=== PATIENT | female | born 1940 | race Caucasian/White ===

== ENCOUNTER 2018-09-10 12:28 | Inpatient (IN) ==
[2018-09-10] MEDS ORDERED: LORazepam 2 MG/1 ML VIAL IV ONE (13:42)
[2018-09-10] MEDS ORDERED: ONDANSETRON 4 MG/2 ML VIAL IV PRN (13:49)
[2018-09-10] MEDS ORDERED: LABETALOL 20 MG/4 ML SYRINGE IV PRN (13:52)
[2018-09-10] MEDS ORDERED: GLUCAGON 1 MG VIAL IM PRN (14:07)
[2018-09-10] MEDS ORDERED: DEXTROSE 50% 25 GM/50 ML VIAL IV PRN (14:07)
[2018-09-10 14:27] LABS: Basophils # 0.1 10*3/uL (0.0-0.2); Basophils % 0.4 % (0.0-0.8); Eosinophils # 0.1 10*3/uL (0.0-0.87); Eosinophils % 0.6 % (0.00-10.9); Hematocrit 43.5 VOL% (35.7-47.0); Hemoglobin 15.5 GM/DL (12.0-16.0); Immature Granulocytes % 0.8 %; Immature Granulocytes Absolute 0.13 #; Lymphocytes # 2.3 10*3/uL (1.4-4.0); Lymphocytes % 14.6 % (21.3-54.2); Mean Corpuscular HGB Conc 35.6 GM/DL (32-36); Mean Corpuscular Volume 82.4 FL (87-102); Mean Platelet Volume 8.3 FL (9.6-12.0); Neutrophils % 75.6 % (38.7-73.9); Platelet Count 249 T/CUMM (130-400); Red Blood Count 5.28 MC/CUMM (3.8-5.5); Red Cell Distribution Width 12.7 % (9.3-17.3); White Blood Count 15.9 T/CUMM (4-12)
[2018-09-10] MEDS ORDERED: SODIUM CHLORIDE 0.45% 1,000 ML IV SCH (14:30)
[2018-09-10] MEDS ORDERED: CLOPIDOGREL 75 MG TABLET PO ONE (14:48)
[2018-09-10 14:59] LABS: Albumin 3.8 G/DL (3.4-5.0); Bilirubin,Total 0.7 MG/DL (0.2-1.0); Calcium 9.4 MG/DL (8.5-10.1); Osmolality,Calculated 256.2 MOS/KG (273-304); Risk Ratio 4.09; Thyroid Stimulating Hormone 2.9 uIU/ml (0.358-3.74); Total Protein 7.1 G/DL (6.4-8.3); VLDL CHOLESTEROL 26.2 MG/DL
[2018-09-10] MEDS: ASPIRIN EC 81 MG TABLET PO SCH (15:41)
[2018-09-10] MEDS: INSULIN REGULAR 100 UNIT/ML SUBCUT SCH (17:49)
[2018-09-10] MEDS ORDERED: POTASSIUM CHLORIDE 20 MEQ TABLET PO ONE (20:00)
[2018-09-10] MEDS ORDERED: LISINOPRIL 20 MG TABLET PO SCH (21:00)
[2018-09-10] MEDS: amLODIPine 10 MG TABLET PO SCH (21:04)
[2018-09-10] MEDS: LISINOPRIL 20 MG TABLET PO SCH (21:04)
[2018-09-10] MEDS: ATORVASTATIN 80 MG TABLET PO SCH (21:04)
[2018-09-10] MEDS: LABETALOL 100 MG TABLET PO SCH (21:05)
[2018-09-10] MEDS: SODIUM CHLOR 0.9% KCL 20 MEQ 20 MEQ/1,000 ML BAG IV SCH (21:06)
[2018-09-11] MEDS: INSULIN REGULAR 100 UNIT/ML SUBCUT SCH ×4 (00:44→18:21)
[2018-09-11] MEDS: ACETAMINOPHEN 325 MG TABLET PO PRN ×4 (03:58→22:00)
[2018-09-11 05:20] LABS: Calcium 8.5 MG/DL (8.5-10.1); Osmolality,Calculated 264.5 MOS/KG (273-304)
[2018-09-11] MEDS: SODIUM CHLOR 0.9% KCL 20 MEQ 20 MEQ/1,000 ML BAG IV SCH (05:21)
[2018-09-11 05:34] LABS: Barbiturates Screen,Urine Negative (Negative); Benzodiazepines Screen,Urine Negative (Negative); Cannabinoid Screen,Urine Negative (Negative); Opiate Screen,Urine Negative (Negative); Phencyclidine Screen,Urine Negative (Negative)
[2018-09-11] MEDS ORDERED: MAGNESIUM SULF RIDER 2 GM in PREMIX 1 EACH IV PRN (07:38)
[2018-09-11] MEDS ORDERED: MAGNESIUM SULF RIDER 4 GM in PREMIX 1 EACH IV PRN (07:38)
[2018-09-11] MEDS ORDERED: LISINOPRIL/HCTZ 20-12.5 MG TABLET PO SCH (09:00)
[2018-09-11] MEDS: OMEGA 3 ACID ETHYL ESTERS 1 GM CAPSULE PO SCH (09:23)
[2018-09-11] MEDS: ASPIRIN EC 81 MG TABLET PO SCH (09:24)
[2018-09-11] MEDS: LISINOPRIL 20 MG TABLET PO SCH ×2 (09:24→22:00)
[2018-09-11] MEDS: LABETALOL 100 MG TABLET PO SCH ×2 (09:25→22:01)
[2018-09-11] MEDS: CLOPIDOGREL 75 MG TABLET PO SCH (09:25)
[2018-09-11] MEDS: ATORVASTATIN 80 MG TABLET PO SCH (22:00)
[2018-09-11] MEDS: amLODIPine 10 MG TABLET PO SCH (22:01)
[2018-09-12] MEDS: INSULIN REGULAR 100 UNIT/ML SUBCUT SCH ×3 (00:20→12:08)
[2018-09-12] MEDS: ASPIRIN EC 81 MG TABLET PO SCH (08:37)
[2018-09-12] MEDS: CLOPIDOGREL 75 MG TABLET PO SCH (08:37)
[2018-09-12] MEDS: LABETALOL 100 MG TABLET PO SCH (08:37)
[2018-09-12] MEDS: OMEGA 3 ACID ETHYL ESTERS 1 GM CAPSULE PO SCH (08:37)
[2018-09-12] MEDS: ACETAMINOPHEN 325 MG TABLET PO PRN (09:01)
[2018-09-12] MEDS: LISINOPRIL 20 MG TABLET PO SCH (09:01)
[2018-09-12] MEDS ORDERED: MAGNESIUM HYDROXIDE SUSP 30 ML UDCUP PO ONE (09:45)
[2018-09-12 12:41] VITALS: BP 144/68
== END 2018-09-12 14:05 | DRG 65 ==
LOC: N.4E 12:41 → SUATTDRO 12:41
PROVIDERS: ADMIT Family Medicine; ATTEND Family Medicine

== ENCOUNTER 2020-04-29 09:45 | Inpatient (IN) ==
[2020-04-29] MEDS ORDERED: KETOROLAC 30 MG/1 ML VIAL IV STA (10:49)
[2020-04-29 10:50] LABS: Basophils # 0.1 10*3/uL (0.0-0.2); Basophils % 0.7 % (0.0-0.8); Eosinophils # 0.2 10*3/uL (0.0-0.87); Hematocrit 30.7 VOL% (35.7-47.0); Immature Granulocytes % 1.2 %; Immature Granulocytes Absolute 0.15 #; Lymphocytes # 1.2 10*3/uL (1.4-4.0); Lymphocytes % 9.6 % (21.3-54.2); Mean Corpuscular HGB Conc 32.6 GM/DL (32-36); Mean Corpuscular Volume 71.9 FL (87-102); Mean Platelet Volume 8.3 FL (9.6-12.0); Monocytes % 9.9 % (1.7-12.7); Neutrophils % 76.6 % (38.7-73.9); Platelet Count 332 T/CUMM (130-400); Red Blood Count 4.27 MC/CUMM (3.8-5.5); White Blood Count 12.2 T/CUMM (4-12)
[2020-04-29 11:07] LABS: Albumin 2.7 G/DL (3.4-5.0); Bilirubin,Total 0.8 MG/DL (0.2-1.0); Calcium 8.6 MG/DL (8.5-10.1); Osmolality,Calculated 247.1 MOS/KG (273-304); Potassium 3.7 MMOL/L (3.5-5.1); Total Protein 6.3 G/DL (5.0-7.5)
[2020-04-29 11:43] LABS: Amorphous Crystals,Urine Moderate /HPF (Few); Bacteria,Urine Occasional /HPF (Few); Bilirubin,Urine Negative (Negative); Blood, Urine Negative (Negative); Glucose,Urine (UA) Negative (Negative); Ketones,Urine Negative (Negative); Mucus,Urine Occasional /LPF (Occasional); Nitrite,Urine Negative (Negative); Protein,Urine Negative; Urine Appearance Slightly Hazy (Clear); Urine Color Yellow (Yellow); Urine Urobilinogen < 2.0 EU/DL (0.2-1.0)
[2020-04-29] MEDS ORDERED: SODIUM CHLORIDE 0.9% 1,000 ML IV STA (11:52)
[2020-04-29] MEDS ORDERED: DEXTROSE 50% 25 GM/50 ML VIAL IV PRN (13:38)
[2020-04-29] MEDS ORDERED: hydrALAZINE 20 MG/1 ML VIAL IV PRN (13:38)
[2020-04-29] MEDS ORDERED: GLUCAGON 1 MG VIAL IM PRN (13:38)
[2020-04-29] MEDS ORDERED: CALCIUM CARBONATE CHEW 500 MG TABLET PO PRN (13:38)
[2020-04-29] MEDS ORDERED: SODIUM PHOSPHATE ENEMA 133 ML BOTTLE RECTAL ONE (13:41)
[2020-04-29] MEDS ORDERED: BISACODYL 10 MG SUPP RECTAL PRN (13:42)
[2020-04-29] MEDS: SODIUM CHLORIDE 0.9% 1,000 ML IV SCH ×2 (14:41→23:11)
[2020-04-29] MEDS ORDERED: MAGNESIUM CITRATE 300 ML BOTTLE PO ONE ×2 (15:55)
[2020-04-29] MEDS ORDERED: MAGNESIUM CITRATE 300 ML BOTTLE ONE (15:56)
[2020-04-29 16:44] LABS: Calcium 8.1 MG/DL (8.5-10.1); Osmolality,Calculated 255.4 MOS/KG (273-304); Potassium 3.4 MMOL/L (3.5-5.1)
[2020-04-29] MEDS: INSULIN REGULAR 100 UNIT/ML SUBCUT SCH (19:34)
[2020-04-29] MEDS ORDERED: POTASSIUM CHLORIDE 20 MEQ/15 ML UDCUP PO ONE (20:08)
[2020-04-29] MEDS: DOCUSATE SODIUM 100 MG CAPSULE PO SCH (20:59)
[2020-04-29] MEDS: DOCUSATE SODIUM 100 MG/10 ML UDCUP PO SCH (20:59)
[2020-04-29] MEDS: LACTULOSE 20 GM/30 ML UDCUP PO SCH (20:59)
[2020-04-29] MEDS: ATORVASTATIN 80 MG TABLET PO SCH (23:10)
[2020-04-29] MEDS: LABETALOL 100 MG TABLET PO SCH (23:10)
[2020-04-29] MEDS: lisinopriL 20 MG TABLET PO SCH (23:10)
[2020-04-29] MEDS: amLODIPine 10 MG TABLET PO SCH (23:10)
[2020-04-30 06:07] LABS: Basophils # 0.1 10*3/uL (0.0-0.2); Basophils % 0.3 % (0.0-0.8); Eosinophils # 0.1 10*3/uL (0.0-0.87); Eosinophils % 0.3 % (0.00-10.9); Hematocrit 29.2 VOL% (35.7-47.0); Hemoglobin 9.5 GM/DL (12.0-16.0); Immature Granulocytes % 0.9 %; Immature Granulocytes Absolute 0.15 #; Lymphocytes # 1.4 10*3/uL (1.4-4.0); Lymphocytes % 8.2 % (21.3-54.2); Mean Corpuscular HGB Conc 32.5 GM/DL (32-36); Mean Corpuscular Volume 73.4 FL (87-102); Mean Platelet Volume 8.7 FL (9.6-12.0); Monocytes % 6.2 % (1.7-12.7); Neutrophils % 84.1 % (38.7-73.9); Platelet Count 342 T/CUMM (130-400); Red Blood Count 3.98 MC/CUMM (3.8-5.5); White Blood Count 17.5 T/CUMM (4-12)
[2020-04-30 06:37] LABS: Calcium 8.2 MG/DL (8.5-10.1); Osmolality,Calculated 256.2 MOS/KG (273-304); Potassium 3.7 MMOL/L (3.5-5.1); Risk Ratio 1.89; VLDL CHOLESTEROL 11.2 MG/DL
[2020-04-30] MEDS: INSULIN REGULAR 100 UNIT/ML SUBCUT SCH ×3 (10:18→17:06)
[2020-04-30] MEDS: LACTULOSE 20 GM/30 ML UDCUP PO SCH ×2 (10:19→20:50)
[2020-04-30] MEDS: DOCUSATE SODIUM 100 MG/10 ML UDCUP PO SCH (10:19)
[2020-04-30] MEDS: DOCUSATE SODIUM 100 MG CAPSULE PO SCH ×2 (10:19→20:48)
[2020-04-30] MEDS: ASPIRIN EC 81 MG TABLET PO SCH (10:22)
[2020-04-30] MEDS: OMEGA 3 ACID ETHYL ESTERS 1 GM CAPSULE PO SCH (10:24)
[2020-04-30] MEDS: lisinopriL 20 MG TABLET PO SCH ×2 (10:25→20:49)
[2020-04-30] MEDS: PANTOPRAZOLE 40 MG TABLET PO SCH (10:25)
[2020-04-30] MEDS: LABETALOL 100 MG TABLET PO SCH ×2 (10:25→20:49)
[2020-04-30] MEDS: amLODIPine 10 MG TABLET PO SCH (20:48)
[2020-04-30] MEDS: ATORVASTATIN 80 MG TABLET PO SCH (20:51)
[2020-04-30] MEDS: POLYETHYLENE GLYCOL POWDER 17 GM PACK PO SCH (21:15)
[2020-05-01 05:33] LABS: Basophils # 0.1 10*3/uL (0.0-0.2); Basophils % 0.5 % (0.0-0.8); Eosinophils # 0.3 10*3/uL (0.0-0.87); Eosinophils % 2.3 % (0.00-10.9); Hematocrit 27.2 VOL% (35.7-47.0); Immature Granulocytes Absolute 0.14 #; Lymphocytes # 2.2 10*3/uL (1.4-4.0); Lymphocytes % 15.8 % (21.3-54.2); Mean Corpuscular HGB Conc 33.1 GM/DL (32-36); Mean Corpuscular Volume 72.3 FL (87-102); Mean Platelet Volume 8.4 FL (9.6-12.0); Monocytes % 10.7 % (1.7-12.7); Neutrophils % 69.7 % (38.7-73.9); Platelet Count 300 T/CUMM (130-400); Red Blood Count 3.76 MC/CUMM (3.8-5.5); Red Cell Distribution Width 16.2 % (9.3-17.3); White Blood Count 14.1 T/CUMM (4-12)
[2020-05-01 05:49] LABS: Calcium 8.1 MG/DL (8.5-10.1); Osmolality,Calculated 256.2 MOS/KG (273-304); Potassium 3.3 MMOL/L (3.5-5.1)
[2020-05-01] MEDS: DOCUSATE SODIUM 100 MG CAPSULE PO SCH ×2 (09:00→21:50)
[2020-05-01] MEDS: POLYETHYLENE GLYCOL POWDER 17 GM PACK PO SCH (09:00)
[2020-05-01] MEDS: lisinopriL 20 MG TABLET PO SCH ×2 (09:00→21:50)
[2020-05-01] MEDS: LABETALOL 100 MG TABLET PO SCH ×2 (09:00→21:50)
[2020-05-01] MEDS: ASPIRIN EC 81 MG TABLET PO SCH (09:01)
[2020-05-01] MEDS: PANTOPRAZOLE 40 MG TABLET PO SCH (09:01)
[2020-05-01] MEDS: OMEGA 3 ACID ETHYL ESTERS 1 GM CAPSULE PO SCH (09:01)
[2020-05-01] MEDS: LACTULOSE 20 GM/30 ML UDCUP PO SCH ×2 (09:01→21:50)
[2020-05-01] MEDS: INSULIN REGULAR 100 UNIT/ML SUBCUT SCH ×3 (09:43→17:15)
[2020-05-01] MEDS: POTASSIUM CHLORIDE INJ 10 MEQ in SODIUM CHLORIDE 0.9% 1,000 ML IV SCH (10:54)
[2020-05-01] MEDS: CALCIUM (CARBONATE)/VITAMIN D 500 MG-200 UNIT TABLET PO SCH (10:54)
[2020-05-01] MEDS: POTASSIUM CHLORIDE 20 MEQ TABLET PO PRN ×3 (14:33→19:13)
[2020-05-01] MEDS: amLODIPine 10 MG TABLET PO SCH (21:49)
[2020-05-01] MEDS: TAMSULOSIN 0.4 MG CAPSULE PO SCH (21:50)
[2020-05-01] MEDS: ATORVASTATIN 80 MG TABLET PO SCH (21:50)
[2020-05-02 01:30] LABS: INR 1.2; PT Patient Result 12.7 SECS (9.8-11.9)
[2020-05-02 01:34] LABS: Basophils # 0.1 10*3/uL (0.0-0.2); Basophils % 0.6 % (0.0-0.8); Eosinophils # 0.4 10*3/uL (0.0-0.87); Eosinophils % 2.9 % (0.00-10.9); Hematocrit 27.6 VOL% (35.7-47.0); Hemoglobin 9.2 GM/DL (12.0-16.0); Immature Granulocytes % 1.8 %; Immature Granulocytes Absolute 0.27 #; Lymphocytes # 2.3 10*3/uL (1.4-4.0); Lymphocytes % 15.8 % (21.3-54.2); Mean Corpuscular HGB Conc 33.3 GM/DL (32-36); Mean Corpuscular Volume 71.9 FL (87-102); Mean Platelet Volume 8.6 FL (9.6-12.0); Monocytes % 10.3 % (1.7-12.7); Neutrophils % 68.6 % (38.7-73.9); Platelet Count 302 T/CUMM (130-400); Red Blood Count 3.84 MC/CUMM (3.8-5.5); Red Cell Distribution Width 15.9 % (9.3-17.3); White Blood Count 14.7 T/CUMM (4-12)
[2020-05-02 06:00] LABS: Calcium 8.3 MG/DL (8.5-10.1); Osmolality,Calculated 257.1 MOS/KG (273-304)
[2020-05-02] MEDS: LACTULOSE 20 GM/30 ML UDCUP PO SCH ×2 (09:05→21:04)
[2020-05-02] MEDS: POLYETHYLENE GLYCOL POWDER 17 GM PACK PO SCH ×2 (09:05→21:04)
[2020-05-02] MEDS: LABETALOL 100 MG TABLET PO SCH ×2 (09:06→21:04)
[2020-05-02] MEDS: DOCUSATE SODIUM 100 MG CAPSULE PO SCH ×2 (09:06→21:04)
[2020-05-02] MEDS: ASPIRIN EC 81 MG TABLET PO SCH (09:06)
[2020-05-02] MEDS: CALCIUM (CARBONATE)/VITAMIN D 500 MG-200 UNIT TABLET PO SCH (09:06)
[2020-05-02] MEDS: PANTOPRAZOLE 40 MG TABLET PO SCH (09:07)
[2020-05-02] MEDS: INSULIN REGULAR 100 UNIT/ML SUBCUT SCH ×3 (09:11→15:51)
[2020-05-02] MEDS: lisinopriL 20 MG TABLET PO SCH ×2 (10:11→21:04)
[2020-05-02] MEDS: OMEGA 3 ACID ETHYL ESTERS 1 GM CAPSULE PO SCH (10:13)
[2020-05-02 12:45] LABS: Bacteria,Urine Many /HPF (Few); Bilirubin,Urine Negative (Negative); Blood, Urine Small mg/dL (Negative); Glucose,Urine (UA) Negative (Negative); Ketones,Urine Negative (Negative); Mucus,Urine Moderate /LPF (Occasional); Nitrite,Urine Negative (Negative); Protein,Urine 30 MG/DL; RBC,Urine 37 /HPF (0-4); Urine Appearance CLOUDY (Clear); Urine Color Yellow (Yellow); Urine Specific Gravity 1.009 (1.001-1.035); Urine Urobilinogen < 2.0 EU/DL (0.2-1.0); WBC,Urine 878 /HPF (0-6)
[2020-05-02] MEDS: cefTRIAXone 1,000 MG in SYRINGE 1 EACH IV SCH (17:22)
[2020-05-02] MEDS: amLODIPine 10 MG TABLET PO SCH (21:04)
[2020-05-02] MEDS: ATORVASTATIN 80 MG TABLET PO SCH (21:04)
[2020-05-02] MEDS: TAMSULOSIN 0.4 MG CAPSULE PO SCH (21:04)
[2020-05-03 05:39] LABS: Basophils # 0.1 10*3/uL (0.0-0.2); Basophils % 0.4 % (0.0-0.8); Eosinophils # 0.6 10*3/uL (0.0-0.87); Eosinophils % 4.2 % (0.00-10.9); Hematocrit 27.4 VOL% (35.7-47.0); Immature Granulocytes % 2.2 %; Immature Granulocytes Absolute 0.29 #; Lymphocytes % 15.1 % (21.3-54.2); Mean Corpuscular HGB Conc 32.8 GM/DL (32-36); Mean Corpuscular Volume 71.5 FL (87-102); Mean Platelet Volume 8.8 FL (9.6-12.0); Monocytes % 11.6 % (1.7-12.7); Neutrophils % 66.5 % (38.7-73.9); Platelet Count 314 T/CUMM (130-400); Red Blood Count 3.83 MC/CUMM (3.8-5.5); Red Cell Distribution Width 16.2 % (9.3-17.3); White Blood Count 13.2 T/CUMM (4-12)
[2020-05-03 05:55] LABS: Osmolality,Calculated 255.2 MOS/KG (273-304); Potassium 3.5 MMOL/L (3.5-5.1)
[2020-05-03] MEDS: SODIUM CHLORIDE 0.9% 1,000 ML IV SCH ×3 (07:34→16:32)
[2020-05-03] MEDS: POTASSIUM CHLORIDE INJ 10 MEQ in SODIUM CHLORIDE 0.9% 1,000 ML IV SCH ×2 (07:35→22:21)
[2020-05-03] MEDS: INSULIN REGULAR 100 UNIT/ML SUBCUT SCH ×3 (07:36→16:33)
[2020-05-03] MEDS: LACTULOSE 20 GM/30 ML UDCUP PO SCH ×2 (08:23→22:19)
[2020-05-03] MEDS: POLYETHYLENE GLYCOL POWDER 17 GM PACK PO SCH ×2 (08:24→22:19)
[2020-05-03] MEDS: LABETALOL 100 MG TABLET PO SCH ×2 (08:24→21:49)
[2020-05-03] MEDS: PANTOPRAZOLE 40 MG TABLET PO SCH (08:24)
[2020-05-03] MEDS: lisinopriL 20 MG TABLET PO SCH ×2 (08:24→21:48)
[2020-05-03] MEDS: OMEGA 3 ACID ETHYL ESTERS 1 GM CAPSULE PO SCH (08:24)
[2020-05-03] MEDS: DOCUSATE SODIUM 100 MG CAPSULE PO SCH ×2 (08:24→21:48)
[2020-05-03] MEDS: CALCIUM (CARBONATE)/VITAMIN D 500 MG-200 UNIT TABLET PO SCH (08:24)
[2020-05-03] MEDS ORDERED: fentaNYL 100 MCG/2 ML VIAL ONE (16:15)
[2020-05-03] MEDS: DESITIN 4OZ/NYSTATIN 15 GRAM MIXTURE PASTE TOP SCH ×2 (16:32→22:20)
[2020-05-03] MEDS: cefTRIAXone 1,000 MG in SYRINGE 1 EACH IV SCH (16:33)
[2020-05-03] MEDS ORDERED: propofoL 200 MG/20 ML VIAL IV ONE (16:38)
[2020-05-03] MEDS ORDERED: LIDOCAINE 2% 5 ML VIAL ONE (16:38)
[2020-05-03] MEDS ORDERED: SODIUM CHLORIDE 0.9% 100 ML IV ONE (16:38)
[2020-05-03] MEDS ORDERED: LIDOCAINE 1% 20 ML VIAL ONE (17:03)
[2020-05-03] MEDS ORDERED: LACTATED RINGERS 1,000 ML IV ONE (17:14)
[2020-05-03] MEDS ORDERED: TISSUE ADHESIVE 1 EACH APPLICATOR TOP ONE (17:28)
[2020-05-03] MEDS ORDERED: SODIUM PHOSPHATE ENEMA 133 ML BOTTLE RECTAL ONE (20:00)
[2020-05-03] MEDS: ATORVASTATIN 80 MG TABLET PO SCH (21:48)
[2020-05-03] MEDS: TAMSULOSIN 0.4 MG CAPSULE PO SCH (21:48)
[2020-05-03] MEDS: amLODIPine 10 MG TABLET PO SCH (21:49)
[2020-05-04] MEDS: SODIUM CHLORIDE 0.9% 1,000 ML IV SCH (05:16)
[2020-05-04] MEDS ORDERED: SODIUM PHOSPHATE ENEMA 133 ML BOTTLE RECTAL ONE (06:00)
[2020-05-04] MEDS: POTASSIUM CHLORIDE INJ 10 MEQ in SODIUM CHLORIDE 0.9% 1,000 ML IV SCH (06:27)
[2020-05-04] MEDS: INSULIN REGULAR 100 UNIT/ML SUBCUT SCH ×3 (07:00→15:50)
[2020-05-04 08:12] LABS: Basophils # 0.1 10*3/uL (0.0-0.2); Basophils % 0.5 % (0.0-0.8); Eosinophils # 0.4 10*3/uL (0.0-0.87); Eosinophils % 3.8 % (0.00-10.9); Hematocrit 28.6 VOL% (35.7-47.0); Hemoglobin 9.5 GM/DL (12.0-16.0); Immature Granulocytes % 1.2 %; Immature Granulocytes Absolute 0.14 #; Lymphocytes # 1.5 10*3/uL (1.4-4.0); Lymphocytes % 12.7 % (21.3-54.2); Mean Corpuscular HGB Conc 33.2 GM/DL (32-36); Mean Corpuscular Volume 71.3 FL (87-102); Mean Platelet Volume 8.3 FL (9.6-12.0); Monocytes % 11.9 % (1.7-12.7); Neutrophils % 69.9 % (38.7-73.9); Platelet Count 287 T/CUMM (130-400); Red Blood Count 4.01 MC/CUMM (3.8-5.5); Red Cell Distribution Width 16.4 % (9.3-17.3); White Blood Count 11.6 T/CUMM (4-12)
[2020-05-04] MEDS: DOCUSATE SODIUM 100 MG CAPSULE PO SCH ×2 (08:25→21:28)
[2020-05-04] MEDS: POLYETHYLENE GLYCOL POWDER 17 GM PACK PO SCH ×2 (08:25→21:28)
[2020-05-04] MEDS: OMEGA 3 ACID ETHYL ESTERS 1 GM CAPSULE PO SCH (08:25)
[2020-05-04] MEDS: LACTULOSE 20 GM/30 ML UDCUP PO SCH ×2 (08:25→21:29)
[2020-05-04] MEDS: CALCIUM (CARBONATE)/VITAMIN D 500 MG-200 UNIT TABLET PO SCH (08:25)
[2020-05-04] MEDS: lisinopriL 20 MG TABLET PO SCH ×2 (08:25→21:28)
[2020-05-04] MEDS: DESITIN 4OZ/NYSTATIN 15 GRAM MIXTURE PASTE TOP SCH ×2 (08:26→21:43)
[2020-05-04] MEDS: PANTOPRAZOLE 40 MG TABLET PO SCH (08:26)
[2020-05-04] MEDS: LABETALOL 100 MG TABLET PO SCH ×2 (08:26→21:29)
[2020-05-04 08:51] LABS: Albumin 2.2 G/DL (3.4-5.0); Bilirubin,Total 0.7 MG/DL (0.2-1.0); Calcium 8.1 MG/DL (8.5-10.1); Osmolality,Calculated 257.1 MOS/KG (273-304); Potassium 3.3 MMOL/L (3.5-5.1); Total Protein 5.3 G/DL (5.0-7.5)
[2020-05-04] MEDS ORDERED: SODIUM BICARBONATE 650 MG TABLET PO SCH (09:00)
[2020-05-04] MEDS: SODIUM BICARBONATE 650 MG TABLET PO SCH ×2 (11:03→21:29)
[2020-05-04] MEDS: cefTRIAXone 1,000 MG in SYRINGE 1 EACH IV SCH (16:02)
[2020-05-04] MEDS ORDERED: POTASSIUM CHLORIDE 20 MEQ/15 ML UDCUP PO ONE (21:00)
[2020-05-04] MEDS: ATORVASTATIN 80 MG TABLET PO SCH (21:28)
[2020-05-04] MEDS: TAMSULOSIN 0.4 MG CAPSULE PO SCH (21:28)
[2020-05-04] MEDS: amLODIPine 10 MG TABLET PO SCH (21:29)
[2020-05-05 04:12] LABS: Basophils # 0.1 10*3/uL (0.0-0.2); Basophils % 0.4 % (0.0-0.8); Eosinophils # 0.4 10*3/uL (0.0-0.87); Eosinophils % 3.1 % (0.00-10.9); Hematocrit 26.7 VOL% (35.7-47.0); Hemoglobin 8.4 GM/DL (12.0-16.0); Immature Granulocytes % 1.6 %; Immature Granulocytes Absolute 0.19 #; Lymphocytes # 1.6 10*3/uL (1.4-4.0); Lymphocytes % 13.1 % (21.3-54.2); Mean Corpuscular HGB Conc 31.5 GM/DL (32-36); Mean Corpuscular Volume 73.2 FL (87-102); Mean Platelet Volume 8.7 FL (9.6-12.0); Monocytes % 12.6 % (1.7-12.7); Neutrophils % 69.2 % (38.7-73.9); Platelet Count 310 T/CUMM (130-400); Red Blood Count 3.65 MC/CUMM (3.8-5.5); Red Cell Distribution Width 16.5 % (9.3-17.3); White Blood Count 11.9 T/CUMM (4-12)
[2020-05-05 04:35] LABS: Albumin 2.1 G/DL (3.4-5.0); Bilirubin,Total 0.6 MG/DL (0.2-1.0); Osmolality,Calculated 261.8 MOS/KG (273-304); Potassium 3.5 MMOL/L (3.5-5.1); Total Protein 4.9 G/DL (5.0-7.5)
[2020-05-05] MEDS ORDERED: MAGNESIUM SULF RIDER 2 GM in PREMIX 1 EACH IV ONE (08:23)
[2020-05-05] MEDS: DOCUSATE SODIUM 100 MG CAPSULE PO SCH ×2 (08:32→21:16)
[2020-05-05] MEDS: PANTOPRAZOLE 40 MG TABLET PO SCH (08:32)
[2020-05-05] MEDS: OMEGA 3 ACID ETHYL ESTERS 1 GM CAPSULE PO SCH (08:32)
[2020-05-05] MEDS: SODIUM BICARBONATE 650 MG TABLET PO SCH (08:33)
[2020-05-05] MEDS: CALCIUM (CARBONATE)/VITAMIN D 500 MG-200 UNIT TABLET PO SCH (08:33)
[2020-05-05] MEDS: LABETALOL 100 MG TABLET PO SCH ×2 (08:33→21:16)
[2020-05-05] MEDS: lisinopriL 20 MG TABLET PO SCH ×2 (08:33→21:16)
[2020-05-05] MEDS: LACTULOSE 20 GM/30 ML UDCUP PO SCH ×4 (08:37→21:16)
[2020-05-05] MEDS: POLYETHYLENE GLYCOL POWDER 17 GM PACK PO SCH ×2 (08:37→21:16)
[2020-05-05] MEDS: INSULIN REGULAR 100 UNIT/ML SUBCUT SCH ×3 (09:39→17:39)
[2020-05-05] MEDS: ACETAMINOPHEN 325 MG TABLET PO PRN (10:37)
[2020-05-05] MEDS: DESITIN 4OZ/NYSTATIN 15 GRAM MIXTURE PASTE TOP SCH ×2 (11:04→21:17)
[2020-05-05] MEDS ORDERED: BISACODYL 10 MG SUPP RECTAL ONE (11:16)
[2020-05-05] MEDS: POTASSIUM CHLORIDE 20 MEQ TABLET PO PRN (15:04)
[2020-05-05] MEDS ORDERED: MINERAL OIL ENEMA 133 ML BOTTLE RECTAL ONE (17:00)
[2020-05-05] MEDS: cefTRIAXone 1,000 MG in SYRINGE 1 EACH IV SCH (17:50)
[2020-05-05] MEDS: amLODIPine 10 MG TABLET PO SCH (21:16)
[2020-05-05] MEDS: TAMSULOSIN 0.4 MG CAPSULE PO SCH (21:16)
[2020-05-05] MEDS: ATORVASTATIN 80 MG TABLET PO SCH (21:17)
[2020-05-06 08:24] LABS: Calcium 8.4 MG/DL (8.5-10.1); Osmolality,Calculated 255.4 MOS/KG (273-304); Potassium 3.7 MMOL/L (3.5-5.1)
[2020-05-06] MEDS: LACTULOSE 20 GM/30 ML UDCUP PO SCH ×3 (09:11→21:11)
[2020-05-06] MEDS: LABETALOL 100 MG TABLET PO SCH ×2 (09:11→21:12)
[2020-05-06] MEDS: POLYETHYLENE GLYCOL POWDER 17 GM PACK PO SCH ×2 (09:11→21:13)
[2020-05-06] MEDS: lisinopriL 20 MG TABLET PO SCH ×2 (09:11→21:11)
[2020-05-06] MEDS: CALCIUM (CARBONATE)/VITAMIN D 500 MG-200 UNIT TABLET PO SCH (09:11)
[2020-05-06] MEDS: OMEGA 3 ACID ETHYL ESTERS 1 GM CAPSULE PO SCH (09:12)
[2020-05-06] MEDS: DOCUSATE SODIUM 100 MG CAPSULE PO SCH ×2 (09:12→21:12)
[2020-05-06] MEDS: PANTOPRAZOLE 40 MG TABLET PO SCH (09:12)
[2020-05-06] MEDS: DESITIN 4OZ/NYSTATIN 15 GRAM MIXTURE PASTE TOP SCH ×2 (09:19→21:13)
[2020-05-06] MEDS: INSULIN REGULAR 100 UNIT/ML SUBCUT SCH ×3 (09:52→16:57)
[2020-05-06] MEDS: ACETAMINOPHEN 325 MG TABLET PO PRN (15:36)
[2020-05-06] MEDS ORDERED: MAGNESIUM SULF RIDER 2 GM in PREMIX 1 EACH IV ONE (17:22)
[2020-05-06] MEDS: cefTRIAXone 1,000 MG in SYRINGE 1 EACH IV SCH (18:22)
[2020-05-06] MEDS: SODIUM CHLORIDE 1 GM TABLET PO SCH (18:26)
[2020-05-06] MEDS: ATORVASTATIN 80 MG TABLET PO SCH (21:11)
[2020-05-06] MEDS: TAMSULOSIN 0.4 MG CAPSULE PO SCH (21:12)
[2020-05-06] MEDS: amLODIPine 10 MG TABLET PO SCH (21:12)
[2020-05-07 05:45] LABS: Basophils # 0.1 10*3/uL (0.0-0.2); Basophils % 0.6 % (0.0-0.8); Eosinophils # 0.3 10*3/uL (0.0-0.87); Eosinophils % 2.6 % (0.00-10.9); Hematocrit 25.7 VOL% (35.7-47.0); Hemoglobin 8.5 GM/DL (12.0-16.0); Immature Granulocytes % 1.7 %; Immature Granulocytes Absolute 0.21 #; Lymphocytes # 1.9 10*3/uL (1.4-4.0); Lymphocytes % 14.6 % (21.3-54.2); Mean Corpuscular HGB Conc 33.1 GM/DL (32-36); Mean Corpuscular Volume 71.6 FL (87-102); Mean Platelet Volume 8.9 FL (9.6-12.0); Monocytes % 9.9 % (1.7-12.7); Neutrophils % 70.6 % (38.7-73.9); Platelet Count 287 T/CUMM (130-400); Red Blood Count 3.59 MC/CUMM (3.8-5.5); Red Cell Distribution Width 16.3 % (9.3-17.3); White Blood Count 12.6 T/CUMM (4-12)
[2020-05-07 06:03] LABS: Bilirubin,Total 0.7 MG/DL (0.2-1.0); Calcium 8.1 MG/DL (8.5-10.1); Osmolality,Calculated 255.2 MOS/KG (273-304); Potassium 3.5 MMOL/L (3.5-5.1); Total Protein 4.7 G/DL (5.0-7.5)
[2020-05-07] MEDS: POTASSIUM CHLORIDE 20 MEQ TABLET PO PRN ×2 (06:44→10:05)
[2020-05-07] MEDS ORDERED: MAGNESIUM SULF RIDER 2 GM in PREMIX 1 EACH IV ONE (08:00)
[2020-05-07] MEDS ORDERED: SODIUM CHLORIDE 1 GM TABLET PO SCH (09:00)
[2020-05-07] MEDS: LACTULOSE 20 GM/30 ML UDCUP PO SCH (10:03)
[2020-05-07] MEDS: POLYETHYLENE GLYCOL POWDER 17 GM PACK PO SCH (10:03)
[2020-05-07] MEDS: LABETALOL 100 MG TABLET PO SCH (10:04)
[2020-05-07] MEDS: lisinopriL 20 MG TABLET PO SCH (10:04)
[2020-05-07] MEDS: SODIUM CHLORIDE 1 GM TABLET PO SCH (10:05)
[2020-05-07] MEDS: OMEGA 3 ACID ETHYL ESTERS 1 GM CAPSULE PO SCH (10:05)
[2020-05-07] MEDS: PANTOPRAZOLE 40 MG TABLET PO SCH (10:05)
[2020-05-07] MEDS: DOCUSATE SODIUM 100 MG CAPSULE PO SCH (10:05)
[2020-05-07] MEDS: CALCIUM (CARBONATE)/VITAMIN D 500 MG-200 UNIT TABLET PO SCH (10:05)
[2020-05-07] MEDS: DESITIN 4OZ/NYSTATIN 15 GRAM MIXTURE PASTE TOP SCH (10:06)
[2020-05-07] MEDS: INSULIN REGULAR 100 UNIT/ML SUBCUT SCH ×2 (10:22→12:40)
[2020-05-07 11:15] VITALS: BP 134/51
== END 2020-05-07 13:20 | disposition home health service (06) | DRG 478 ==
LOC: N.EDINP 09:45 → EDUNIT# 09:45 → N.ED 09:45 → EDBD 09:45 → N.3E 15:29 → SUATTDRO 05-02 11:42
PROVIDERS: ADMIT Internal Medicine; ATTEND Internal Medicine

== ENCOUNTER 2020-05-11 02:05 | Inpatient (IN) ==
[2020-05-11 02:48] LABS: Basophils % 0.2 % (0.0-0.8); Eosinophils # 0.1 10*3/uL (0.0-0.87); Eosinophils % 0.9 % (0.00-10.9); Hematocrit 27.4 VOL% (35.7-47.0); Hemoglobin 8.7 GM/DL (12.0-16.0); Immature Granulocytes % 1.4 %; Immature Granulocytes Absolute 0.22 #; Lymphocytes # 1.3 10*3/uL (1.4-4.0); Lymphocytes % 8.3 % (21.3-54.2); Mean Corpuscular HGB Conc 31.8 GM/DL (32-36); Mean Corpuscular Volume 72.5 FL (87-102); Mean Platelet Volume 8.9 FL (9.6-12.0); Monocytes % 8.2 % (1.7-12.7); Platelet Count 336 T/CUMM (130-400); Red Blood Count 3.78 MC/CUMM (3.8-5.5); Red Cell Distribution Width 16.9 % (9.3-17.3); White Blood Count 15.2 T/CUMM (4-12)
[2020-05-11 03:02] LABS: Alanine Aminotransferase 32 U/L (13-56); Alkaline Phosphatase 132 U/L (45-117); Aspartate Amino Transferase 62 U/L (0-37); Blood Urea Nitrogen 16 MG/DL (7-18); Calcium 8.9 MG/DL (8.5-10.1); Carbon Dioxide 20 MMOL/L (21-32); Estimated Glom Filtration Rate 103 ML/MIN; Glucose 148 MG/DL (74-106); Osmolality,Calculated 250.8 MOS/KG (273-304); Potassium 4.1 MMOL/L (3.5-5.1); Sodium 123 MMOL/L (136-145); Total Protein 5.2 G/DL (6.4-8.2); Troponin I < 0.015 NG/ML (0.00-0.045)
[2020-05-11] MEDS ORDERED: MAGNESIUM SULF RIDER 2 GM in PREMIX 1 EACH IV STA (03:11)
[2020-05-11 03:45] LABS: Bacteria,Urine Occasional /HPF (Few); Bilirubin,Urine Negative (Negative); Blood, Urine Small mg/dL (Negative); Glucose,Urine (UA) Negative (Negative); Ketones,Urine Negative (Negative); Mucus,Urine Occasional /LPF (Occasional); Nitrite,Urine Negative (Negative); Protein,Urine Negative; RBC,Urine 1 /HPF (0-4); Squamous Epithelial Cell,Urine Occasional /HPF (0-10); Urine Appearance CLEAR (Clear); Urine Color Yellow (Yellow); Urine Specific Gravity 1.012 (1.001-1.035); Urine Urobilinogen < 2.0 EU/DL (0.2-1.0); WBC,Urine <1 /HPF (0-6)
[2020-05-11 03:48] LABS: Barbiturates Screen,Urine Negative (Negative); Benzodiazepines Screen,Urine Negative (Negative); Cannabinoid Screen,Urine Negative (Negative); Opiate Screen,Urine Negative (Negative); Phencyclidine Screen,Urine Negative (Negative)
[2020-05-11] MEDS ORDERED: PIPERACILLIN/TAZOBACTAM 3,375 MG in SODIUM CHLORIDE 0.9% 100 ML IV STA (03:54)
[2020-05-11] MEDS ORDERED: ALBUTEROL/IPRATROPIUM 3 ML NEB RESP TX PRN (04:35)
[2020-05-11] MEDS: LEVOFLOXACIN INJ 750 MG in PREMIX 1 EACH IV SCH (05:45)
[2020-05-11] MEDS ORDERED: hydrALAZINE 20 MG/1 ML VIAL IV PRN (06:12)
[2020-05-11] MEDS ORDERED: DEXTROSE 50% 25 GM/50 ML VIAL IV PRN (06:12)
[2020-05-11] MEDS ORDERED: GLUCAGON 1 MG VIAL IM PRN (06:12)
[2020-05-11] MEDS ORDERED: ONDANSETRON 4 MG/2 ML VIAL IV PRN (06:12)
[2020-05-11] MEDS ORDERED: MAGNESIUM SULF RIDER 4 GM in PREMIX 1 EACH IV PRN (06:17)
[2020-05-11] MEDS: SODIUM CHLORIDE 0.9% 1,000 ML IV SCH ×4 (06:30→22:14)
[2020-05-11] MEDS: INSULIN LISPRO 100 UNIT/ML SUBCUT SCH ×4 (07:47→21:09)
[2020-05-11] MEDS: ENOXAPARIN 40 MG/0.4 ML SYRINGE SUBCUT SCH (08:40)
[2020-05-11] MEDS: LACTULOSE 20 GM/30 ML UDCUP PO SCH ×5 (13:24→22:33)
[2020-05-11] MEDS: PIPERACILLIN/TAZOBACTAM 3,375 MG in SODIUM CHLORIDE 0.9% 100 ML IV SCH ×2 (13:24→21:08)
[2020-05-12 01:58] LABS: Basophils % 0.2 % (0.0-0.8); Eosinophils # 0.1 10*3/uL (0.0-0.87); Eosinophils % 0.6 % (0.00-10.9); Hematocrit 26.6 VOL% (35.7-47.0); Hemoglobin 8.3 GM/DL (12.0-16.0); Immature Granulocytes % 1.1 %; Immature Granulocytes Absolute 0.16 #; Lymphocytes # 1.6 10*3/uL (1.4-4.0); Mean Corpuscular HGB Conc 31.2 GM/DL (32-36); Mean Corpuscular Volume 72.9 FL (87-102); Mean Platelet Volume 8.5 FL (9.6-12.0); Monocytes % 10.3 % (1.7-12.7); Neutrophils % 76.8 % (38.7-73.9); Platelet Count 310 T/CUMM (130-400); Red Blood Count 3.65 MC/CUMM (3.8-5.5); Red Cell Distribution Width 17.2 % (9.3-17.3); White Blood Count 14.4 T/CUMM (4-12)
[2020-05-12 02:18] LABS: Calcium 8.6 MG/DL (8.5-10.1); Osmolality,Calculated 259.1 MOS/KG (273-304); Potassium 3.2 MMOL/L (3.5-5.1)
[2020-05-12] MEDS: LACTULOSE 20 GM/30 ML UDCUP PO SCH ×6 (02:36→21:41)
[2020-05-12] MEDS: POTASSIUM CHLORIDE 20 MEQ TABLET PO PRN ×4 (02:36→10:55)
[2020-05-12] MEDS: LEVOFLOXACIN INJ 750 MG in PREMIX 1 EACH IV SCH (03:30)
[2020-05-12] MEDS: SODIUM CHLORIDE 0.9% 1,000 ML IV SCH (05:42)
[2020-05-12] MEDS: PIPERACILLIN/TAZOBACTAM 3,375 MG in SODIUM CHLORIDE 0.9% 100 ML IV SCH ×3 (05:52→21:40)
[2020-05-12] MEDS: ENOXAPARIN 40 MG/0.4 ML SYRINGE SUBCUT SCH ×2 (08:29→08:36)
[2020-05-12] MEDS: INSULIN LISPRO 100 UNIT/ML SUBCUT SCH ×4 (08:29→22:13)
[2020-05-12] MEDS ORDERED: FUROSEMIDE 40 MG/4 ML VIAL IV ONE (10:11)
[2020-05-12 17:37] LABS: Cancer Antigen 19-9 24.42 U/ML (0-35); Carcinoembryonic Antigen 0.9 NG/ML (0.0-5.0)
[2020-05-12] MEDS: DOCUSATE SODIUM 100 MG CAPSULE PO SCH (21:40)
[2020-05-12] MEDS: PSYLLIUM POWDER 3.7 GM/PACK PO SCH (21:40)
[2020-05-13] MEDS: LACTULOSE 20 GM/30 ML UDCUP PO SCH ×7 (02:33→22:13)
[2020-05-13] MEDS: LEVOFLOXACIN INJ 750 MG in PREMIX 1 EACH IV SCH (03:04)
[2020-05-13 04:29] LABS: Basophils % 0.3 % (0.0-0.8); Eosinophils % 0.1 % (0.00-10.9); Hematocrit 26.5 VOL% (35.7-47.0); Hemoglobin 8.6 GM/DL (12.0-16.0); Immature Granulocytes % 1.8 %; Immature Granulocytes Absolute 0.26 #; Lymphocytes # 1.6 10*3/uL (1.4-4.0); Lymphocytes % 11.2 % (21.3-54.2); Mean Corpuscular HGB Conc 32.5 GM/DL (32-36); Mean Corpuscular Volume 72.2 FL (87-102); Mean Platelet Volume 8.8 FL (9.6-12.0); Monocytes % 9.2 % (1.7-12.7); Neutrophils % 77.4 % (38.7-73.9); Platelet Count 296 T/CUMM (130-400); Red Blood Count 3.67 MC/CUMM (3.8-5.5); Red Cell Distribution Width 17.2 % (9.3-17.3); White Blood Count 14.1 T/CUMM (4-12)
[2020-05-13 04:46] LABS: Calcium 9.2 MG/DL (8.5-10.1); Osmolality,Calculated 261.9 MOS/KG (273-304); Potassium 2.9 MMOL/L (3.5-5.1)
[2020-05-13] MEDS: PIPERACILLIN/TAZOBACTAM 3,375 MG in SODIUM CHLORIDE 0.9% 100 ML IV SCH ×3 (05:10→22:17)
[2020-05-13] MEDS: POTASSIUM CHLORIDE 20 MEQ TABLET PO PRN ×4 (06:19→14:06)
[2020-05-13] MEDS: ENOXAPARIN 40 MG/0.4 ML SYRINGE SUBCUT SCH (09:07)
[2020-05-13] MEDS: DOCUSATE SODIUM 100 MG CAPSULE PO SCH ×2 (09:07→22:14)
[2020-05-13] MEDS: PSYLLIUM POWDER 3.7 GM/PACK PO SCH ×2 (09:07→22:17)
[2020-05-13] MEDS: INSULIN LISPRO 100 UNIT/ML SUBCUT SCH ×3 (09:08→16:47)
[2020-05-13] MEDS: SODIUM CHLORIDE 0.9% 1,000 ML IV SCH ×3 (09:08→16:50)
[2020-05-13] MEDS: LABETALOL 100 MG TABLET PO SCH ×2 (14:24→22:15)
[2020-05-13] MEDS: ATORVASTATIN 80 MG TABLET PO SCH (22:13)
[2020-05-13] MEDS: TAMSULOSIN 0.4 MG CAPSULE PO SCH (22:14)
[2020-05-13] MEDS: LORazepam 0.5 MG TABLET PO SCH (22:14)
[2020-05-13] MEDS: amLODIPine 10 MG TABLET PO SCH (22:15)
[2020-05-13] MEDS: lisinopriL 20 MG TABLET PO SCH (22:16)
[2020-05-14] MEDS: INSULIN LISPRO 100 UNIT/ML SUBCUT SCH ×5 (02:04→21:41)
[2020-05-14] MEDS: LEVOFLOXACIN INJ 750 MG in PREMIX 1 EACH IV SCH (02:44)
[2020-05-14] MEDS: LACTULOSE 20 GM/30 ML UDCUP PO SCH ×6 (04:35→21:43)
[2020-05-14] MEDS: PIPERACILLIN/TAZOBACTAM 3,375 MG in SODIUM CHLORIDE 0.9% 100 ML IV SCH ×3 (07:38→21:45)
[2020-05-14] MEDS ORDERED: LIDOCAINE 1%/EPI INJ 20 ML VIAL ONE (10:57)
[2020-05-14 12:03] LABS: Basophils % 0.2 % (0.0-0.8); Eosinophils # 0.1 10*3/uL (0.0-0.87); Eosinophils % 0.5 % (0.00-10.9); Hematocrit 25.6 VOL% (35.7-47.0); Hemoglobin 8.3 GM/DL (12.0-16.0); Immature Granulocytes % 2.2 %; Immature Granulocytes Absolute 0.31 #; Lymphocytes # 1.6 10*3/uL (1.4-4.0); Lymphocytes % 11.5 % (21.3-54.2); Mean Corpuscular HGB Conc 32.4 GM/DL (32-36); Mean Corpuscular Volume 71.5 FL (87-102); Mean Platelet Volume 8.7 FL (9.6-12.0); Monocytes % 9.2 % (1.7-12.7); Neutrophils % 76.4 % (38.7-73.9); Platelet Count 265 T/CUMM (130-400); Red Blood Count 3.58 MC/CUMM (3.8-5.5); Red Cell Distribution Width 17.4 % (9.3-17.3); White Blood Count 14.3 T/CUMM (4-12)
[2020-05-14 12:23] LABS: Calcium 9.1 MG/DL (8.5-10.1); Osmolality,Calculated 264.5 MOS/KG (273-304); Potassium 2.8 MMOL/L (3.5-5.1)
[2020-05-14] MEDS: PSYLLIUM POWDER 3.7 GM/PACK PO SCH ×2 (12:42→21:40)
[2020-05-14] MEDS: OMEGA 3 ACID ETHYL ESTERS 1 GM CAPSULE PO SCH (12:42)
[2020-05-14] MEDS: DOCUSATE SODIUM 100 MG CAPSULE PO SCH ×2 (12:43→21:39)
[2020-05-14] MEDS: ASPIRIN EC 81 MG TABLET PO SCH (12:43)
[2020-05-14] MEDS: ENOXAPARIN 40 MG/0.4 ML SYRINGE SUBCUT SCH (12:43)
[2020-05-14] MEDS: lisinopriL 20 MG TABLET PO SCH ×2 (12:43→21:39)
[2020-05-14] MEDS: POTASSIUM CHLORIDE 20 MEQ TABLET PO PRN ×3 (12:44→17:03)
[2020-05-14] MEDS: LABETALOL 100 MG TABLET PO SCH ×2 (12:47→21:40)
[2020-05-14] MEDS: MAGNESIUM SULF RIDER 2 GM in PREMIX 1 EACH IV PRN ×2 (14:00→16:01)
[2020-05-14] MEDS: SODIUM CHLORIDE 0.9% 1,000 ML IV SCH (18:05)
[2020-05-14] MEDS: TAMSULOSIN 0.4 MG CAPSULE PO SCH (21:39)
[2020-05-14] MEDS: LORazepam 0.5 MG TABLET PO SCH (21:39)
[2020-05-14] MEDS: amLODIPine 10 MG TABLET PO SCH (21:39)
[2020-05-14] MEDS: ATORVASTATIN 80 MG TABLET PO SCH (21:40)
[2020-05-15] MEDS: LACTULOSE 20 GM/30 ML UDCUP PO SCH ×6 (02:05→22:25)
[2020-05-15] MEDS: LEVOFLOXACIN INJ 750 MG in PREMIX 1 EACH IV SCH (03:23)
[2020-05-15 05:03] LABS: Basophils % 0.1 % (0.0-0.8); Eosinophils # 0.1 10*3/uL (0.0-0.87); Eosinophils % 0.7 % (0.00-10.9); Hematocrit 24.1 VOL% (35.7-47.0); Hemoglobin 7.8 GM/DL (12.0-16.0); Immature Granulocytes % 1.8 %; Immature Granulocytes Absolute 0.24 #; Lymphocytes # 1.8 10*3/uL (1.4-4.0); Lymphocytes % 13.4 % (21.3-54.2); Mean Corpuscular HGB Conc 32.4 GM/DL (32-36); Mean Corpuscular Volume 72.2 FL (87-102); Mean Platelet Volume 9.1 FL (9.6-12.0); Monocytes % 9.1 % (1.7-12.7); Neutrophils % 74.9 % (38.7-73.9); Platelet Count 266 T/CUMM (130-400); Red Blood Count 3.34 MC/CUMM (3.8-5.5); Red Cell Distribution Width 17.4 % (9.3-17.3); White Blood Count 13.6 T/CUMM (4-12)
[2020-05-15 05:24] LABS: Calcium 9.5 MG/DL (8.5-10.1); Osmolality,Calculated 263.8 MOS/KG (273-304); Potassium 3.9 MMOL/L (3.5-5.1)
[2020-05-15] MEDS: PIPERACILLIN/TAZOBACTAM 3,375 MG in SODIUM CHLORIDE 0.9% 100 ML IV SCH ×3 (06:00→21:38)
[2020-05-15] MEDS: INSULIN LISPRO 100 UNIT/ML SUBCUT SCH ×4 (07:26→21:38)
[2020-05-15] MEDS: PSYLLIUM POWDER 3.7 GM/PACK PO SCH ×2 (10:14→21:38)
[2020-05-15] MEDS: ASPIRIN EC 81 MG TABLET PO SCH (10:15)
[2020-05-15] MEDS: LABETALOL 100 MG TABLET PO SCH ×2 (10:15→21:38)
[2020-05-15] MEDS: ENOXAPARIN 40 MG/0.4 ML SYRINGE SUBCUT SCH (10:15)
[2020-05-15] MEDS: OMEGA 3 ACID ETHYL ESTERS 1 GM CAPSULE PO SCH (10:16)
[2020-05-15] MEDS: DOCUSATE SODIUM 100 MG CAPSULE PO SCH ×2 (10:16→21:38)
[2020-05-15] MEDS: lisinopriL 20 MG TABLET PO SCH ×2 (10:16→21:38)
[2020-05-15] MEDS: SODIUM CHLORIDE 0.9% 1,000 ML IV SCH ×3 (13:29→18:00)
[2020-05-15] MEDS: LORazepam 0.5 MG TABLET PO SCH (21:38)
[2020-05-15] MEDS: ATORVASTATIN 80 MG TABLET PO SCH (21:38)
[2020-05-15] MEDS: TAMSULOSIN 0.4 MG CAPSULE PO SCH (21:38)
[2020-05-15] MEDS: amLODIPine 10 MG TABLET PO SCH (21:38)
[2020-05-16] MEDS: LACTULOSE 20 GM/30 ML UDCUP PO SCH ×3 (02:55→11:14)
[2020-05-16] MEDS: LEVOFLOXACIN INJ 750 MG in PREMIX 1 EACH IV SCH (04:10)
[2020-05-16] MEDS: PIPERACILLIN/TAZOBACTAM 3,375 MG in SODIUM CHLORIDE 0.9% 100 ML IV SCH ×3 (05:50→21:26)
[2020-05-16 08:40] LABS: Basophils % 0.2 % (0.0-0.8); Eosinophils # 0.1 10*3/uL (0.0-0.87); Eosinophils % 0.8 % (0.00-10.9); Hematocrit 26.5 VOL% (35.7-47.0); Hemoglobin 8.4 GM/DL (12.0-16.0); Immature Granulocytes % 2.1 %; Immature Granulocytes Absolute 0.27 #; Lymphocytes # 1.5 10*3/uL (1.4-4.0); Lymphocytes % 11.7 % (21.3-54.2); Mean Corpuscular HGB Conc 31.7 GM/DL (32-36); Mean Corpuscular Volume 72.8 FL (87-102); Mean Platelet Volume 9.1 FL (9.6-12.0); Monocytes % 8.3 % (1.7-12.7); Neutrophils % 76.9 % (38.7-73.9); Platelet Count 298 T/CUMM (130-400); Red Blood Count 3.64 MC/CUMM (3.8-5.5); Red Cell Distribution Width 17.5 % (9.3-17.3); White Blood Count 13.1 T/CUMM (4-12)
[2020-05-16 08:53] LABS: Calcium 9.4 MG/DL (8.5-10.1); Osmolality,Calculated 263.7 MOS/KG (273-304)
[2020-05-16] MEDS: INSULIN LISPRO 100 UNIT/ML SUBCUT SCH ×4 (09:26→21:21)
[2020-05-16] MEDS: ENOXAPARIN 40 MG/0.4 ML SYRINGE SUBCUT SCH (11:12)
[2020-05-16] MEDS: LABETALOL 100 MG TABLET PO SCH ×2 (11:13→21:26)
[2020-05-16] MEDS: ASPIRIN EC 81 MG TABLET PO SCH (11:14)
[2020-05-16] MEDS: OMEGA 3 ACID ETHYL ESTERS 1 GM CAPSULE PO SCH (11:14)
[2020-05-16] MEDS: PSYLLIUM POWDER 3.7 GM/PACK PO SCH ×2 (11:14→21:27)
[2020-05-16] MEDS: DOCUSATE SODIUM 100 MG CAPSULE PO SCH ×2 (11:14→21:26)
[2020-05-16] MEDS: lisinopriL 20 MG TABLET PO SCH ×2 (11:14→21:27)
[2020-05-16] MEDS ORDERED: LACTULOSE 20 GM/30 ML UDCUP PO PRN (12:36)
[2020-05-16] MEDS: SODIUM CHLORIDE 0.9% 1,000 ML IV SCH ×3 (13:06→15:01)
[2020-05-16] MEDS: POTASSIUM CHLORIDE 20 MEQ TABLET PO PRN ×3 (13:54→18:34)
[2020-05-16] MEDS: MAGNESIUM SULF RIDER 2 GM in PREMIX 1 EACH IV PRN (17:30)
[2020-05-16] MEDS: ATORVASTATIN 80 MG TABLET PO SCH (21:26)
[2020-05-16] MEDS: POTASSIUM CHLORIDE 20 MEQ TABLET PO SCH (21:27)
[2020-05-16] MEDS: LORazepam 0.5 MG TABLET PO SCH (21:27)
[2020-05-16] MEDS: amLODIPine 10 MG TABLET PO SCH (21:27)
[2020-05-16] MEDS: TAMSULOSIN 0.4 MG CAPSULE PO SCH (21:27)
[2020-05-16] MEDS: POLYETHYLENE GLYCOL POWDER 17 GM PACK PO SCH (21:28)
[2020-05-17] MEDS: LEVOFLOXACIN INJ 750 MG in PREMIX 1 EACH IV SCH (02:30)
[2020-05-17 05:02] LABS: Basophils % 0.2 % (0.0-0.8); Eosinophils # 0.2 10*3/uL (0.0-0.87); Eosinophils % 1.5 % (0.00-10.9); Hematocrit 24.3 VOL% (35.7-47.0); Hemoglobin 7.7 GM/DL (12.0-16.0); Immature Granulocytes % 2.3 %; Immature Granulocytes Absolute 0.27 #; Lymphocytes # 1.5 10*3/uL (1.4-4.0); Mean Corpuscular HGB Conc 31.7 GM/DL (32-36); Mean Corpuscular Volume 71.9 FL (87-102); Monocytes % 9.2 % (1.7-12.7); Neutrophils % 73.8 % (38.7-73.9); Platelet Count 261 T/CUMM (130-400); Red Blood Count 3.38 MC/CUMM (3.8-5.5); Red Cell Distribution Width 17.7 % (9.3-17.3); White Blood Count 11.9 T/CUMM (4-12)
[2020-05-17] MEDS: PIPERACILLIN/TAZOBACTAM 3,375 MG in SODIUM CHLORIDE 0.9% 100 ML IV SCH ×3 (05:08→22:16)
[2020-05-17 05:25] LABS: Albumin 1.9 G/DL (3.4-5.0); Bilirubin,Total 0.9 MG/DL (0.2-1.0); Calcium 9.2 MG/DL (8.5-10.1); Osmolality,Calculated 264.7 MOS/KG (273-304); Potassium 3.9 MMOL/L (3.5-5.1); Total Protein 4.6 G/DL (6.4-8.2)
[2020-05-17 05:26] LABS: % Iron Saturation 13.3 % (18-50); Ferritin 137.7 ng/ml (8-252)
[2020-05-17] MEDS: POLYETHYLENE GLYCOL POWDER 17 GM PACK PO SCH ×2 (10:14→22:15)
[2020-05-17] MEDS: ENOXAPARIN 40 MG/0.4 ML SYRINGE SUBCUT SCH (10:14)
[2020-05-17] MEDS: lisinopriL 20 MG TABLET PO SCH ×2 (10:15→22:15)
[2020-05-17] MEDS: OMEGA 3 ACID ETHYL ESTERS 1 GM CAPSULE PO SCH (10:15)
[2020-05-17] MEDS: LABETALOL 100 MG TABLET PO SCH ×2 (10:15→22:15)
[2020-05-17] MEDS: FERROUS SULFATE 325 MG TABLET PO SCH ×2 (10:16→22:14)
[2020-05-17] MEDS: POTASSIUM CHLORIDE 20 MEQ TABLET PO SCH ×2 (10:16→22:15)
[2020-05-17] MEDS: DOCUSATE SODIUM 100 MG CAPSULE PO SCH ×2 (10:16→22:14)
[2020-05-17] MEDS: ASPIRIN EC 81 MG TABLET PO SCH (10:16)
[2020-05-17] MEDS: PSYLLIUM POWDER 3.7 GM/PACK PO SCH ×2 (10:17→22:15)
[2020-05-17] MEDS ORDERED: MAGNESIUM SULF RIDER 2 GM in PREMIX 1 EACH IV ONE (13:27)
[2020-05-17] MEDS: SODIUM CHLORIDE 0.9% 1,000 ML IV SCH ×4 (14:00→23:45)
[2020-05-17] MEDS: INSULIN LISPRO 100 UNIT/ML SUBCUT SCH ×3 (14:45→20:59)
[2020-05-17] MEDS: TAMSULOSIN 0.4 MG CAPSULE PO SCH (22:14)
[2020-05-17] MEDS: LORazepam 0.5 MG TABLET PO SCH (22:14)
[2020-05-17] MEDS: ATORVASTATIN 80 MG TABLET PO SCH (22:15)
[2020-05-17] MEDS: amLODIPine 10 MG TABLET PO SCH (22:15)
[2020-05-18] MEDS: LEVOFLOXACIN INJ 750 MG in PREMIX 1 EACH IV SCH (03:09)
[2020-05-18] MEDS: PIPERACILLIN/TAZOBACTAM 3,375 MG in SODIUM CHLORIDE 0.9% 100 ML IV SCH ×3 (04:27→21:53)
[2020-05-18 05:50] LABS: Basophils % 0.3 % (0.0-0.8); Eosinophils # 0.1 10*3/uL (0.0-0.87); Eosinophils % 1.2 % (0.00-10.9); Hematocrit 23.6 VOL% (35.7-47.0); Hemoglobin 7.4 GM/DL (12.0-16.0); Immature Granulocytes Absolute 0.23 #; Lymphocytes # 1.3 10*3/uL (1.4-4.0); Lymphocytes % 10.9 % (21.3-54.2); Mean Corpuscular HGB Conc 31.4 GM/DL (32-36); Mean Corpuscular Volume 72.8 FL (87-102); Mean Platelet Volume 9.2 FL (9.6-12.0); Neutrophils % 76.6 % (38.7-73.9); Platelet Count 250 T/CUMM (130-400); Red Blood Count 3.24 MC/CUMM (3.8-5.5); White Blood Count 11.5 T/CUMM (4-12)
[2020-05-18 06:10] LABS: Albumin 1.7 G/DL (3.4-5.0); Calcium 8.7 MG/DL (8.5-10.1); Osmolality,Calculated 268.2 MOS/KG (273-304); Potassium 3.3 MMOL/L (3.5-5.1); Total Protein 4.4 G/DL (6.4-8.2)
[2020-05-18] MEDS ORDERED: POTASSIUM CHLORIDE 20 MEQ TABLET PO ONE (07:13)
[2020-05-18] MEDS ORDERED: MAGNESIUM SULF RIDER 4 GM in PREMIX 1 EACH IV ONE (07:13)
[2020-05-18] MEDS: ASPIRIN EC 81 MG TABLET PO SCH (08:07)
[2020-05-18] MEDS: POTASSIUM CHLORIDE 20 MEQ TABLET PO SCH ×2 (08:07→22:07)
[2020-05-18] MEDS: LINACLOTIDE 145 MCG CAPSULE PO SCH (08:07)
[2020-05-18] MEDS: FERROUS SULFATE 325 MG TABLET PO SCH ×2 (08:08→22:07)
[2020-05-18] MEDS: LABETALOL 100 MG TABLET PO SCH ×2 (08:08→22:07)
[2020-05-18] MEDS: POTASSIUM CHLORIDE 20 MEQ TABLET PO PRN ×2 (08:08→16:32)
[2020-05-18] MEDS: OMEGA 3 ACID ETHYL ESTERS 1 GM CAPSULE PO SCH (08:08)
[2020-05-18] MEDS: DOCUSATE SODIUM 100 MG CAPSULE PO SCH ×2 (08:08→22:07)
[2020-05-18] MEDS: ENOXAPARIN 40 MG/0.4 ML SYRINGE SUBCUT SCH (08:08)
[2020-05-18] MEDS: lisinopriL 20 MG TABLET PO SCH ×2 (08:08→22:07)
[2020-05-18] MEDS: INSULIN LISPRO 100 UNIT/ML SUBCUT SCH ×4 (08:11→21:02)
[2020-05-18] MEDS: SODIUM CHLORIDE 0.9% 1,000 ML IV SCH (08:12)
[2020-05-18] MEDS: POLYETHYLENE GLYCOL POWDER 17 GM PACK PO SCH ×2 (08:13→21:01)
[2020-05-18] MEDS: PSYLLIUM POWDER 3.7 GM/PACK PO SCH ×2 (08:14→21:01)
[2020-05-18] MEDS: ACETAMINOPHEN 325 MG TABLET PO PRN (21:53)
[2020-05-18] MEDS: LORazepam 0.5 MG TABLET PO SCH (22:07)
[2020-05-18] MEDS: TAMSULOSIN 0.4 MG CAPSULE PO SCH (22:07)
[2020-05-18] MEDS: amLODIPine 10 MG TABLET PO SCH (22:07)
[2020-05-18] MEDS: ATORVASTATIN 80 MG TABLET PO SCH (22:07)
[2020-05-19 04:21] LABS: Basophils % 0.3 % (0.0-0.8); Eosinophils # 0.2 10*3/uL (0.0-0.87); Eosinophils % 1.4 % (0.00-10.9); Hematocrit 25.6 VOL% (35.7-47.0); Immature Granulocytes Absolute 0.38 #; Lymphocytes # 1.4 10*3/uL (1.4-4.0); Mean Corpuscular HGB Conc 31.3 GM/DL (32-36); Mean Corpuscular Volume 73.8 FL (87-102); Mean Platelet Volume 9.1 FL (9.6-12.0); Monocytes % 8.4 % (1.7-12.7); Neutrophils % 75.9 % (38.7-73.9); Platelet Count 266 T/CUMM (130-400); Red Blood Count 3.47 MC/CUMM (3.8-5.5); Red Cell Distribution Width 18.4 % (9.3-17.3); White Blood Count 12.6 T/CUMM (4-12)
[2020-05-19 04:43] LABS: Albumin 1.8 G/DL (3.4-5.0); Bilirubin,Total 1.1 MG/DL (0.2-1.0); Calcium 9.2 MG/DL (8.5-10.1); Osmolality,Calculated 266.4 MOS/KG (273-304); Potassium 3.6 MMOL/L (3.5-5.1); Total Protein 4.7 G/DL (6.4-8.2)
[2020-05-19] MEDS: INSULIN LISPRO 100 UNIT/ML SUBCUT SCH ×4 (07:31→20:42)
[2020-05-19] MEDS ORDERED: SODIUM CHLORIDE 0.9% 1,000 ML IV PRN (08:44)
[2020-05-19] MEDS: FERROUS SULFATE 325 MG TABLET PO SCH ×2 (09:14→20:41)
[2020-05-19] MEDS: OMEGA 3 ACID ETHYL ESTERS 1 GM CAPSULE PO SCH (09:14)
[2020-05-19] MEDS: ASPIRIN EC 81 MG TABLET PO SCH (09:14)
[2020-05-19] MEDS: POLYETHYLENE GLYCOL POWDER 17 GM PACK PO SCH ×2 (09:14→20:42)
[2020-05-19] MEDS: POTASSIUM CHLORIDE 20 MEQ TABLET PO SCH ×2 (09:14→20:41)
[2020-05-19] MEDS: MAGNESIUM SULF RIDER 2 GM in PREMIX 1 EACH IV PRN (09:14)
[2020-05-19] MEDS: DOCUSATE SODIUM 100 MG CAPSULE PO SCH ×2 (09:14→20:41)
[2020-05-19] MEDS: LABETALOL 100 MG TABLET PO SCH ×2 (09:14→20:40)
[2020-05-19] MEDS: LINACLOTIDE 145 MCG CAPSULE PO SCH (09:14)
[2020-05-19] MEDS: lisinopriL 20 MG TABLET PO SCH ×2 (09:14→20:41)
[2020-05-19] MEDS: POTASSIUM CHLORIDE 20 MEQ TABLET PO PRN (09:14)
[2020-05-19] MEDS: PSYLLIUM POWDER 3.7 GM/PACK PO SCH ×2 (09:41→20:42)
[2020-05-19] MEDS: CYPROHEPTADINE 4 MG TABLET PO SCH ×2 (14:17→20:40)
[2020-05-19] MEDS: amLODIPine 10 MG TABLET PO SCH (20:40)
[2020-05-19] MEDS: LORazepam 0.5 MG TABLET PO SCH (20:40)
[2020-05-19] MEDS: ATORVASTATIN 80 MG TABLET PO SCH (20:41)
[2020-05-19] MEDS: TAMSULOSIN 0.4 MG CAPSULE PO SCH (20:41)
[2020-05-20 06:08] LABS: Basophils % 0.2 % (0.0-0.8); Eosinophils # 0.2 10*3/uL (0.0-0.87); Eosinophils % 1.6 % (0.00-10.9); Hematocrit 28.7 VOL% (35.7-47.0); Hemoglobin 9.1 GM/DL (12.0-16.0); Immature Granulocytes % 3.1 %; Immature Granulocytes Absolute 0.37 #; Lymphocytes # 1.7 10*3/uL (1.4-4.0); Lymphocytes % 13.7 % (21.3-54.2); Mean Corpuscular HGB Conc 31.7 GM/DL (32-36); Mean Corpuscular Volume 74.7 FL (87-102); Monocytes % 9.2 % (1.7-12.7); Neutrophils % 72.2 % (38.7-73.9); Platelet Count 250 T/CUMM (130-400); Red Blood Count 3.84 MC/CUMM (3.8-5.5); White Blood Count 12.1 T/CUMM (4-12)
[2020-05-20 06:35] LABS: Calcium 9.1 MG/DL (8.5-10.1); Osmolality,Calculated 271.1 MOS/KG (273-304); Potassium 3.6 MMOL/L (3.5-5.1)
[2020-05-20 06:37] LABS: Albumin 1.8 G/DL (3.4-5.0); Bilirubin,Total 0.9 MG/DL (0.2-1.0); Calcium 8.9 MG/DL (8.5-10.1); Potassium 3.4 MMOL/L (3.5-5.1); Total Protein 4.6 G/DL (6.4-8.2)
[2020-05-20] MEDS: INSULIN LISPRO 100 UNIT/ML SUBCUT SCH ×5 (07:25→22:01)
[2020-05-20 07:50] LABS: Basophils % 0.3 % (0.0-0.8); Eosinophils # 0.2 10*3/uL (0.0-0.87); Eosinophils % 1.3 % (0.00-10.9); Hemoglobin 9.2 GM/DL (12.0-16.0); Immature Granulocytes % 2.7 %; Immature Granulocytes Absolute 0.32 #; Lymphocytes # 1.7 10*3/uL (1.4-4.0); Lymphocytes % 14.2 % (21.3-54.2); Mean Corpuscular HGB Conc 32.9 GM/DL (32-36); Mean Corpuscular Volume 73.5 FL (87-102); Mean Platelet Volume 9.4 FL (9.6-12.0); NRBC # 0.02 10*3/uL; Neutrophils % 72.5 % (38.7-73.9); Platelet Count 246 T/CUMM (130-400); Red Blood Count 3.81 MC/CUMM (3.8-5.5); Red Cell Distribution Width 19.4 % (9.3-17.3); White Blood Count 11.9 T/CUMM (4-12)
[2020-05-20] MEDS: POLYETHYLENE GLYCOL POWDER 17 GM PACK PO SCH ×2 (08:45→20:13)
[2020-05-20] MEDS: ASPIRIN EC 81 MG TABLET PO SCH (08:45)
[2020-05-20] MEDS: PSYLLIUM POWDER 3.7 GM/PACK PO SCH ×2 (08:45→20:14)
[2020-05-20] MEDS: POTASSIUM CHLORIDE 20 MEQ TABLET PO PRN ×2 (08:45→13:20)
[2020-05-20] MEDS: DOCUSATE SODIUM 100 MG CAPSULE PO SCH ×3 (08:45→22:01)
[2020-05-20] MEDS: OMEGA 3 ACID ETHYL ESTERS 1 GM CAPSULE PO SCH (08:45)
[2020-05-20] MEDS: LABETALOL 100 MG TABLET PO SCH ×3 (08:45→22:02)
[2020-05-20] MEDS: LINACLOTIDE 145 MCG CAPSULE PO SCH (08:45)
[2020-05-20] MEDS: POTASSIUM CHLORIDE 20 MEQ TABLET PO SCH ×3 (08:45→22:01)
[2020-05-20] MEDS: FERROUS SULFATE 325 MG TABLET PO SCH ×3 (08:45→22:01)
[2020-05-20] MEDS: CYPROHEPTADINE 4 MG TABLET PO SCH ×3 (08:45→22:02)
[2020-05-20] MEDS: lisinopriL 20 MG TABLET PO SCH ×3 (08:45→22:02)
[2020-05-20] MEDS ORDERED: ZOLEDRONIC ACID 4 MG in PREMIX 1 EACH IV ONE (10:00)
[2020-05-20] MEDS: FAT EMULSION 20% 250 ML IV SCH (13:20)
[2020-05-20] MEDS: ZINC/COPPER/MANGANESE/SELENIUM 1 ML, MULTIVITAMIN INJ 10 ML in AMINO ACIDS/DEXT/LYTES 4... IV SCH (16:54)
[2020-05-20] MEDS: amLODIPine 10 MG TABLET PO SCH ×2 (20:15→22:02)
[2020-05-20] MEDS: ATORVASTATIN 80 MG TABLET PO SCH ×2 (20:15→22:01)
[2020-05-20] MEDS: TAMSULOSIN 0.4 MG CAPSULE PO SCH ×2 (20:16→22:01)
[2020-05-20] MEDS: LORazepam 0.5 MG TABLET PO SCH (20:16)
[2020-05-20] MEDS ORDERED: LORazepam 2 MG/1 ML VIAL IV ONE (21:26)
[2020-05-21 05:52] LABS: Basophils # 0.1 10*3/uL (0.0-0.2); Basophils % 0.5 % (0.0-0.8); Eosinophils # 0.2 10*3/uL (0.0-0.87); Eosinophils % 1.8 % (0.00-10.9); Hematocrit 28.7 VOL% (35.7-47.0); Hemoglobin 9.4 GM/DL (12.0-16.0); Immature Granulocytes % 4.9 %; Immature Granulocytes Absolute 0.61 #; Lymphocytes # 1.5 10*3/uL (1.4-4.0); Lymphocytes % 12.3 % (21.3-54.2); Mean Corpuscular HGB Conc 32.8 GM/DL (32-36); Mean Corpuscular Volume 73.4 FL (87-102); Mean Platelet Volume 9.1 FL (9.6-12.0); Monocytes % 8.2 % (1.7-12.7); Neutrophils % 72.3 % (38.7-73.9); Platelet Count 236 T/CUMM (130-400); Red Blood Count 3.91 MC/CUMM (3.8-5.5); Red Cell Distribution Width 19.5 % (9.3-17.3); White Blood Count 12.5 T/CUMM (4-12)
[2020-05-21 06:15] LABS: Anisocytosis 2+; Band Neutrophils 7 % (0-10); Eosinophils 1 % (0-10); Lymphocytes 15 % (20-55); Platelet Estimate Normal; Segmented Neutrophils 70 % (50-85); Total Cells Counted 100
[2020-05-21 06:16] LABS: Acanthocytes Few; Burr Cells 2+; Hypochromasia Slight; Ovalocytes Few; Poikilocytosis 2+
[2020-05-21 06:44] LABS: Albumin 1.9 G/DL (3.4-5.0); Bilirubin,Total 0.8 MG/DL (0.2-1.0); Calcium 8.8 MG/DL (8.5-10.1); Osmolality,Calculated 267.5 MOS/KG (273-304); Total Protein 4.9 G/DL (6.4-8.2)
[2020-05-21] MEDS: ASPIRIN EC 81 MG TABLET PO SCH (08:25)
[2020-05-21] MEDS: INSULIN LISPRO 100 UNIT/ML SUBCUT SCH ×4 (08:25→21:26)
[2020-05-21] MEDS: CYPROHEPTADINE 4 MG TABLET PO SCH ×2 (08:25→21:28)
[2020-05-21] MEDS: lisinopriL 20 MG TABLET PO SCH ×2 (08:25→21:28)
[2020-05-21] MEDS: POLYETHYLENE GLYCOL POWDER 17 GM PACK PO SCH ×2 (08:25→21:53)
[2020-05-21] MEDS: LABETALOL 100 MG TABLET PO SCH (08:26)
[2020-05-21] MEDS: DOCUSATE SODIUM 100 MG CAPSULE PO SCH ×2 (08:26→21:28)
[2020-05-21] MEDS: LINACLOTIDE 145 MCG CAPSULE PO SCH (08:26)
[2020-05-21] MEDS: POTASSIUM CHLORIDE 20 MEQ TABLET PO PRN ×3 (08:26→16:48)
[2020-05-21] MEDS: FERROUS SULFATE 325 MG TABLET PO SCH ×2 (08:27→21:28)
[2020-05-21] MEDS: POTASSIUM CHLORIDE 20 MEQ TABLET PO SCH ×2 (08:28→21:28)
[2020-05-21] MEDS: PSYLLIUM POWDER 3.7 GM/PACK PO SCH ×2 (08:28→21:53)
[2020-05-21] MEDS: OMEGA 3 ACID ETHYL ESTERS 1 GM CAPSULE PO SCH (08:28)
[2020-05-21] MEDS: MAGNESIUM SULF RIDER 2 GM in PREMIX 1 EACH IV PRN (10:46)
[2020-05-21] MEDS: BACITRACIN OINT 0.9 GM PACK TOP SCH (14:15)
[2020-05-21] MEDS: ZINC/COPPER/MANGANESE/SELENIUM 1 ML, MULTIVITAMIN INJ 10 ML in AMINO ACIDS/DEXT/LYTES 4... IV SCH (17:34)
[2020-05-21] MEDS ORDERED: LORazepam 2 MG/1 ML VIAL IV ONE (19:47)
[2020-05-21] MEDS: TAMSULOSIN 0.4 MG CAPSULE PO SCH (21:28)
[2020-05-21] MEDS: amLODIPine 10 MG TABLET PO SCH (21:28)
[2020-05-21] MEDS: LABETALOL 200 MG TABLET PO SCH (21:28)
[2020-05-21] MEDS: ATORVASTATIN 80 MG TABLET PO SCH (21:28)
[2020-05-22] MEDS: ACETAMINOPHEN 325 MG TABLET PO PRN ×2 (04:58→08:30)
[2020-05-22 05:16] LABS: Basophils # 0.1 10*3/uL (0.0-0.2); Basophils % 0.5 % (0.0-0.8); Eosinophils # 0.2 10*3/uL (0.0-0.87); Eosinophils % 1.5 % (0.00-10.9); Hematocrit 28.7 VOL% (35.7-47.0); Hemoglobin 9.2 GM/DL (12.0-16.0); Immature Granulocytes % 4.5 %; Immature Granulocytes Absolute 0.64 #; Lymphocytes % 13.9 % (21.3-54.2); Mean Corpuscular HGB Conc 32.1 GM/DL (32-36); Mean Corpuscular Volume 74.2 FL (87-102); Mean Platelet Volume 9.5 FL (9.6-12.0); Monocytes % 9.5 % (1.7-12.7); NRBC # 0.02 10*3/uL; Neutrophils % 70.1 % (38.7-73.9); Platelet Count 234 T/CUMM (130-400); Red Blood Count 3.87 MC/CUMM (3.8-5.5); Red Cell Distribution Width 20.1 % (9.3-17.3); White Blood Count 14.2 T/CUMM (4-12)
[2020-05-22 05:31] LABS: Albumin 1.9 G/DL (3.4-5.0); Bilirubin,Total 1.5 MG/DL (0.2-1.0); Calcium 8.5 MG/DL (8.5-10.1); Osmolality,Calculated 270.5 MOS/KG (273-304); Potassium 4.1 MMOL/L (3.5-5.1); Total Protein 4.8 G/DL (6.4-8.2)
[2020-05-22 06:48] LABS: Eosinophils 2 % (0-10); Lymphocytes 12 % (20-55); Platelet Estimate Adequate; Segmented Neutrophils 78 % (50-85); Total Cells Counted 100
[2020-05-22 06:49] LABS: Burr Cells Slight; Hypochromasia 1+; Microcytosis 1+; Ovalocytes Slight
[2020-05-22] MEDS: FAT EMULSION 20% 250 ML IV SCH (08:27)
[2020-05-22] MEDS: DOCUSATE SODIUM 100 MG CAPSULE PO SCH ×2 (08:28→20:28)
[2020-05-22] MEDS: ASPIRIN EC 81 MG TABLET PO SCH (08:28)
[2020-05-22] MEDS: INSULIN LISPRO 100 UNIT/ML SUBCUT SCH ×4 (08:29→20:24)
[2020-05-22] MEDS: CYPROHEPTADINE 4 MG TABLET PO SCH ×2 (08:29→20:28)
[2020-05-22] MEDS: FERROUS SULFATE 325 MG TABLET PO SCH ×2 (08:30→20:28)
[2020-05-22] MEDS: OMEGA 3 ACID ETHYL ESTERS 1 GM CAPSULE PO SCH (08:30)
[2020-05-22] MEDS: LABETALOL 200 MG TABLET PO SCH ×2 (08:30→20:28)
[2020-05-22] MEDS: POTASSIUM CHLORIDE 20 MEQ TABLET PO SCH ×2 (08:30→20:28)
[2020-05-22] MEDS: lisinopriL 20 MG TABLET PO SCH ×2 (08:31→20:28)
[2020-05-22] MEDS: LINACLOTIDE 145 MCG CAPSULE PO SCH (08:50)
[2020-05-22] MEDS: BACITRACIN OINT 0.9 GM PACK TOP SCH (09:14)
[2020-05-22] MEDS: PSYLLIUM POWDER 3.7 GM/PACK PO SCH ×2 (09:15→21:13)
[2020-05-22] MEDS: POLYETHYLENE GLYCOL POWDER 17 GM PACK PO SCH ×2 (09:15→21:14)
[2020-05-22] MEDS: MORPHINE 4 MG/1 ML VIAL IV PRN ×3 (09:42→22:07)
[2020-05-22] MEDS: ZINC/COPPER/MANGANESE/SELENIUM 1 ML, MULTIVITAMIN INJ 10 ML in AMINO ACIDS/DEXT/LYTES 4... IV SCH (16:42)
[2020-05-22] MEDS: ATORVASTATIN 80 MG TABLET PO SCH (20:28)
[2020-05-22] MEDS: TAMSULOSIN 0.4 MG CAPSULE PO SCH (20:28)
[2020-05-22] MEDS: amLODIPine 10 MG TABLET PO SCH (20:28)
[2020-05-23] MEDS: MORPHINE 4 MG/1 ML VIAL IV PRN ×4 (02:26→20:13)
[2020-05-23] MEDS: LABETALOL 200 MG TABLET PO SCH ×2 (08:10→20:19)
[2020-05-23] MEDS: LINACLOTIDE 145 MCG CAPSULE PO SCH (08:10)
[2020-05-23] MEDS: lisinopriL 20 MG TABLET PO SCH ×2 (08:11→20:19)
[2020-05-23] MEDS: ASPIRIN EC 81 MG TABLET PO SCH (08:11)
[2020-05-23] MEDS: INSULIN LISPRO 100 UNIT/ML SUBCUT SCH ×4 (08:11→20:17)
[2020-05-23] MEDS: PSYLLIUM POWDER 3.7 GM/PACK PO SCH ×2 (08:11→20:28)
[2020-05-23] MEDS: POTASSIUM CHLORIDE 20 MEQ TABLET PO SCH ×2 (08:11→20:18)
[2020-05-23] MEDS: CYPROHEPTADINE 4 MG TABLET PO SCH ×2 (08:11→20:19)
[2020-05-23] MEDS: DOCUSATE SODIUM 100 MG CAPSULE PO SCH ×2 (08:11→20:18)
[2020-05-23] MEDS: OMEGA 3 ACID ETHYL ESTERS 1 GM CAPSULE PO SCH (08:11)
[2020-05-23] MEDS: BACITRACIN OINT 0.9 GM PACK TOP SCH (08:11)
[2020-05-23] MEDS: FERROUS SULFATE 325 MG TABLET PO SCH ×2 (08:11→20:18)
[2020-05-23] MEDS: POLYETHYLENE GLYCOL POWDER 17 GM PACK PO SCH ×2 (08:12→20:28)
[2020-05-23] MEDS: ZINC/COPPER/MANGANESE/SELENIUM 1 ML, MULTIVITAMIN INJ 10 ML in AMINO ACIDS/DEXT/LYTES 4... IV SCH (18:14)
[2020-05-23] MEDS: ATORVASTATIN 80 MG TABLET PO SCH (20:18)
[2020-05-23] MEDS: TAMSULOSIN 0.4 MG CAPSULE PO SCH (20:18)
[2020-05-23] MEDS: amLODIPine 10 MG TABLET PO SCH (20:19)
[2020-05-24] MEDS: ZALEPLON 5 MG CAPSULE PO SCH ×2 (01:22→20:02)
[2020-05-24] MEDS: MORPHINE 4 MG/1 ML VIAL IV PRN ×3 (01:55→18:19)
[2020-05-24] MEDS: LORazepam 2 MG/1 ML VIAL IV PRN ×3 (05:02→22:11)
[2020-05-24 06:33] LABS: Calcium 7.8 MG/DL (8.5-10.1); Osmolality,Calculated 271.5 MOS/KG (273-304); Potassium 4.7 MMOL/L (3.5-5.1)
[2020-05-24] MEDS: INSULIN LISPRO 100 UNIT/ML SUBCUT SCH ×4 (07:44→22:10)
[2020-05-24] MEDS: FAT EMULSION 20% 250 ML IV SCH (08:57)
[2020-05-24] MEDS: DOCUSATE SODIUM 100 MG CAPSULE PO SCH ×2 (08:58→20:01)
[2020-05-24] MEDS: CYPROHEPTADINE 4 MG TABLET PO SCH ×2 (08:58→20:02)
[2020-05-24] MEDS: LABETALOL 200 MG TABLET PO SCH ×2 (08:58→20:02)
[2020-05-24] MEDS: POTASSIUM CHLORIDE 20 MEQ TABLET PO SCH ×2 (08:58→20:02)
[2020-05-24] MEDS: PSYLLIUM POWDER 3.7 GM/PACK PO SCH ×2 (08:59→20:01)
[2020-05-24] MEDS: OMEGA 3 ACID ETHYL ESTERS 1 GM CAPSULE PO SCH (08:59)
[2020-05-24] MEDS: POLYETHYLENE GLYCOL POWDER 17 GM PACK PO SCH ×2 (08:59→20:02)
[2020-05-24] MEDS: ASPIRIN EC 81 MG TABLET PO SCH (08:59)
[2020-05-24] MEDS: LINACLOTIDE 145 MCG CAPSULE PO SCH (08:59)
[2020-05-24] MEDS: lisinopriL 20 MG TABLET PO SCH ×2 (08:59→20:02)
[2020-05-24] MEDS: FERROUS SULFATE 325 MG TABLET PO SCH ×2 (08:59→20:01)
[2020-05-24] MEDS: BACITRACIN OINT 0.9 GM PACK TOP SCH (11:00)
[2020-05-24] MEDS: CLINDAMYCIN INJ 600 MG in PREMIX 1 EACH IV SCH ×2 (17:43→22:57)
[2020-05-24] MEDS: ZINC/COPPER/MANGANESE/SELENIUM 1 ML, MULTIVITAMIN INJ 10 ML in AMINO ACIDS/DEXT/LYTES 4... IV SCH (18:36)
[2020-05-24] MEDS: TAMSULOSIN 0.4 MG CAPSULE PO SCH (20:01)
[2020-05-24] MEDS: amLODIPine 10 MG TABLET PO SCH (20:02)
[2020-05-24] MEDS: ATORVASTATIN 80 MG TABLET PO SCH (20:02)
[2020-05-25 00:53] VITALS: BP 135/75
[2020-05-25] MEDS: MORPHINE 4 MG/1 ML VIAL IV PRN (01:41)
[2020-05-25 05:25] LABS: Basophils # 0.1 10*3/uL (0.0-0.2); Basophils % 0.7 % (0.0-0.8); Eosinophils # 0.3 10*3/uL (0.0-0.87); Hematocrit 30.3 VOL% (35.7-47.0); Hemoglobin 8.9 GM/DL (12.0-16.0); Immature Granulocytes % 3.8 %; Immature Granulocytes Absolute 0.58 #; Lymphocytes # 2.6 10*3/uL (1.4-4.0); Lymphocytes % 17.2 % (21.3-54.2); Mean Corpuscular HGB Conc 29.4 GM/DL (32-36); Mean Corpuscular Volume 78.7 FL (87-102); Mean Platelet Volume 9.6 FL (9.6-12.0); Monocytes % 10.4 % (1.7-12.7); NRBC # 0.02 10*3/uL; Neutrophils % 65.9 % (38.7-73.9); Platelet Count 274 T/CUMM (130-400); Red Blood Count 3.85 MC/CUMM (3.8-5.5); Red Cell Distribution Width 20.9 % (9.3-17.3); White Blood Count 15.2 T/CUMM (4-12)
[2020-05-25 05:41] LABS: Calcium 8.2 MG/DL (8.5-10.1); Osmolality,Calculated 276.2 MOS/KG (273-304); Potassium 4.6 MMOL/L (3.5-5.1)
[2020-05-25 06:38] LABS: Band Neutrophils 1 % (0-10); Eosinophils 4 % (0-10); Lymphocytes 13 % (20-55); Segmented Neutrophils 76 % (50-85); Total Cells Counted 100
[2020-05-25 06:39] LABS: Acanthocytes 1+; Anisocytosis 1+; Burr Cells 2+; Platelet Estimate Normal; Poikilocytosis 1+; Polychromasia Slight
== END 2020-05-25 04:29 | disposition expired | DRG 193 ==
LOC: N.ED 02:05 → N.EDINP 06:11 → SUATTDRO 06:11 → N.EDINP 10:12 → N.2E 10:20 → N.4E 05-21 13:40
PROVIDERS: ADMIT Family Medicine; ATTEND Internal Medicine